=== PATIENT | female | born 1980 | race Caucasian/White ===

== ENCOUNTER 2018-04-29 12:56 | Emergency (ER) | payer MEDICAID ==
--- NOTE | 2018-04-29 16:32 | RADIOLOGY REPORT (SQ) ---
EXAM DESCRIPTION: U/S BREAST UNILATERAL LIMITED COMPLETED DATE/TIME: 04/29/2018 2:54 pm REASON FOR STUDY: red swollen painful left breast r/o abscess COMPARISON: None TECHNIQUE: Static and Realtime grayscale interrogation of focal area(s) of concern in the left breas t(s) acquired. Selected color doppler/spectral images saved to PACS. LIMITATIONS: None. FINDINGS: Masses:No cystic or solid masses identified Architecture:No alteration of normal morphology. No skin thickening. No edema. Other: No fluid collection identified. IMPRESSION: No ultrasound evidence of abscess at the patient identified site of pain and tenderness in the left breast. BIRAD: 1 Negative. RECOMMENDATION: RECOMMENDED FOLLOW-UP: Follow-up as clinically indicated. COMMENT: The [employer] ([employer]) has developed recommendations for screening MRI of the breasts in certain patient populations, to be used in conjunction with mammography. Breast MRI s urveillance may be appropriate for women with more than 20% lifetime risk of developing breast cancer as determined by genetic testing, significant family history of the disease, or history of mantle r adiation for Hodgkins Disease. [employer] Practice Guidelines 2008. TECHNICAL DOCUMENTATION: FINDING NUMBER: (1) ASSESSMENT: (1) JOB ID: [id number] [employer]- All Rights Reserved Reading location - IP/workstation name: [email or web address]
--- NOTE | 2018-04-29 17:36 | ER Document Report ---
ED Breast Problem - General Chief Complaint: Breast Problem Stated Complaint: SWOLLEN BREAST Time Seen by Provider: 04/29/18 13:45 Mode of Arrival: Ambulatory Information source: Patient Notes: 37-year-old female presented to ED for complaint of red swelling left breast times 4 days. She denies any fevers chills or any other symptoms except for the painful red swollen breast. She denies any feeling sick any nausea or any other complaints. Patient is alert and oriented respirations regular and unlabored speaking in full sentences. TRAVEL OUTSIDE OF THE [place] IN LAST 30 DAYS: No - HPI Patient complains to provider of: Redness, Swelling, Tenderness - Left breast Onset: Other - 4 days Onset/Duration: Gradual, Worse Quality of pain: Burning, Sharp, Throbbing Severity: Moderate Pain Level: 4 Discharge description: None Associated Symptoms: None Similar symptoms previously: No Recently seen / treated by doctor: No - Related Data Allergies/Adverse Reactions: No Known Allergies Allergy (Verified 04/29/18 13:01) Past Medical History - General Information source: Patient - Social History Smoking Status: Former Smoker Cigarette use (# per day): No Chew tobacco use (# tins/day): No Smoking Education Provided: No Frequency of alcohol use: None Drug Abuse: None Lives with: Family Family History: Reviewed & Not Pertinent Patient has suicidal ideation: No Patient has homicidal ideation: No - Past Medical History Cardiac Medical History: Reports: None Pulmonary Medical History: Reports: None EENT Medical History: Reports: None Neurological Medical History: Reports: None Endocrine Medical History: Reports: None Renal/ Medical History: Reports: None Malignancy Medical History: Reports: None GI Medical History: Reports: Hx Gastroesophageal Reflux Disease Musculoskeletal Medical History: Reports None Skin Medical History: Reports None Psychiatric Medical History: Reports: None Traumatic Medical History: Reports: None Infectious Medical History: Reports: None Past Surgical History: Reports: Hx Cholecystectomy, Hx Hysterectomy, Hx Oral Surgery - wisdom teeth removed - Immunizations Immunizations up to date: Yes Hx Diphtheria, Pertussis, Tetanus Vaccination: Yes Review of Systems - Review of Systems Constitutional: No symptoms reported EENT: No symptoms reported Cardiovascular: No symptoms reported Respiratory: No symptoms reported Gastrointestinal: No symptoms reported Genitourinary: No symptoms reported Female Genitourinary: No symptoms reported Musculoskeletal: No symptoms reported Skin: See HPI, Change in color - Red swollen tender left breast Hematologic/Lymphatic: No symptoms reported Neurological/Psychological: No symptoms reported Physical Exam - Vital signs Vitals: Temp Pulse Resp BP Pulse Ox 98.8 F 97 16 143/90 H 99 04/29/18 13:04/29/18 13:04/29/18 13:04/29/18 13:04/29/18 13:31 - Skin Skin Temperature: Warm Skin Moisture: Dry Skin Color: Normal Location of irregularity: Chest - Red swollen tender left breast surrounding the nipple 3 cm out circumferential to the breast nipple firm area about 4 cm across. Character of irregularity: Erythematous Irregularity with: Swelling, Tenderness, Warmth. negative: Weeping Course - Re-evaluation Re-evalutation: 04/29/18 21:[address] Jenkins concerning the red swollen tender left breast. I showed him the ultrasound that I had received report for. He stated that this looked like a cellulitis to the left breast and she should be treated with Septra and Keflex by mouth and she should return to the emergency room in 2 days as he would be here in 2 days and he would reexamined this breast. Patient was discharged home with prescriptions for Keflex and Bactrim DS and instructed to return to the emergency room in 2 days to be reexamined by Dr. Jenkins. The area of redness was marked with a skin marker before discharge. Patient verbalized understanding and agreement with treatment plan. - Vital Signs Vital signs: Temp Pulse Resp BP Pulse Ox 98.8 F 97 16 143/90 H 99 04/29/18 13:04/29/18 13:04/29/18 13:04/29/18 13:04/29/18 13:31 - Diagnostic Test Radiology reviewed: Image reviewed, Reports reviewed Discharge - Discharge Clinical Impression: Cellulitis of left breast Condition: Stable Disposition: HOME, SELF-CARE Additional Instructions: CELLULITIS of your left breast: You have an infection of your skin and underlying soft tissues called cellulitis. This is due to bacteria, which can enter through any break in the skin, or even through an irritated hair follicle. Untreated, cellulitis will usually worsen. Antibiotics are required. Usually, warm packs or warm soaks, and elevation of the infected area are recommended. You should start getting better within 24 to 36 hours. Most infections respond quickly to the right medication. Follow-up care is important, however, to check for abscess (boil) formation, unsuspected foreign body, or resistant infection. If you develop fever, chills, or if the area of infection is becoming rapidly more swollen or painful, call the doctor at once. TRIMETHOPRIM-SULFA: You have been given a prescription for trimethoprim-sulfa (TMS, Septra, Bactrim). This is a combination antibiotic of the sulfa class, often used for urinary tract infections, middle ear infections, bronchitis, shigella intestinal infection, and Pneumocystis pneumonia. TMS is usually well-tolerated. Occasional side effects include nausea and decreased appetite. Septra is not recommended for infants less than two months of age. Do not take this medication if you have experienced severe side effects or allergy to sulfa medicine. You should stop this medicine at once and contact your physician if you develop any rash, joint pain, shortness of breath, bruising, or jaundice (yellow color in the skin), or if you develop any other new or unusual symptoms. Cephalexin The antibiotic you've been prescribed is a member of the cephalosporin class. This type of antibiotic covers a wide variety of infections, including those of the skin, lungs, and urinary tract. It's useful for staph infections. This antibiotic is slightly similar to the penicillin family. In rare cases, a person who is allergic to penicillin will also be allergic to this medication. If you have had a severe allergic reaction to penicillin, and have not taken this antibiotic since that time, notify your doctor. Antibiotics which cover many germs ("broad spectrum" antibiotics) are more likely to cause diarrhea or "yeast" infections. Women prone to vaginal yeast problems may suffer an attack after taking this antibiotic. In infants, oral thrush (white spots "stuck" on the cheek) or yeast diaper rash may result. See your doctor if these problems occur. Call at once if you develop itching, hives, shortness of breath, or lightheadedness. Return to the emergency room in 2 days for follow-up exam. Return to the emergency room sooner if you develop fevers feeling sick increased redness increased pain or any other concerns. Please be sure to fill the prescription and take it as is ordered. FOLLOW-UP CARE: If you have been referred to a physician for follow-up care, call the physic ians office for an appointment as you were instructed or within the next two days. If you experience worsening or a significant change in your symptoms, notify the physician immediately or return to the Emergency Department at any time for re-evaluation. Prescriptions: Cephalexin Monohydrate [Keflex 500 mg Capsule] 500 mg PO Q6H 10 Days capsule Sulfamethoxazole/Trimethoprim [Bactrim Ds Tablet] 1 each PO BID #20 tablet Forms: Elevated Blood Pressure, Return to Work
[2018-04-29 17:40] VITALS: BP 138/78
== END 2018-04-29 17:40 | disposition home or self-care (01) ==
LOC: ER 12:56
DX: N61.0 Mastitis without abscess (principal); Z87.891 Personal history of nicotine dependence
CPT/HCPCS: 76642; 99284

== ENCOUNTER 2018-05-02 17:02 | Emergency (ER) | payer MEDICAID ==
[2018-05-02] MEDS ORDERED: NORMAL SALINE 1000 ML 1,000 ML IV ONE (18:09)
--- NOTE | 2018-05-02 18:10 | ER Document Report ---
ED Medical Screen (RME) - General Chief Complaint: Breast Problem Stated Complaint: BREAST PAIN Time Seen by Provider: 05/02/18 18:07 Notes: 37 years old female who was seen 3 days ago for the breast cellulitis presents today with persistent fever chills and expansion of the redness in the nipple and breast region. Giving rise to pain TRAVEL OUTSIDE OF THE [place] IN LAST 30 DAYS: No - Related Data Allergies/Adverse Reactions: No Known Allergies Allergy (Verified 05/02/18 17:07) Past Medical History - Social History Chew tobacco use (# tins/day): No Frequency of alcohol use: None Drug Abuse: None Renal/ Medical History: Denies: Hx Peritoneal Dialysis GI Medical History: Reports: Hx Gastroesophageal Reflux Disease Past Surgical History: Reports: Hx Cholecystectomy, Hx Hysterectomy, Hx Oral Surgery - wisdom teeth removed - Immunizations Immunizations up to date: Yes Hx Diphtheria, Pertussis, Tetanus Vaccination: Yes Physical Exam - Vital signs Vitals: Temp Pulse Resp BP Pulse Ox 98.2 F 86 16 147/87 H 98 05/02/18 17:44 05/02/18 17:44 05/02/18 17:44 05/02/18 17:44 05/02/18 17:44 Course - Vital Signs Vital signs: Temp Pulse Resp BP Pulse Ox 98.2 F 86 16 147/87 H 98 05/02/18 17:44 05/02/18 17:44 05/02/18 17:44 05/02/18 17:44 05/02/18 17:44
[2018-05-02 18:52] LABS: ABSOLUTE BASOPHILS # (AUTO) 0.1 10^3/uL (0.0-0.2); ABSOLUTE EOSINOPHILS # (AUTO) 0.1 10^3/uL (0.0-0.6); ABSOLUTE LYMPHOCYTES (AUTO) 2.2 10^3/uL (0.5-4.7); ABSOLUTE NEUT (AUTO) 8.3 10^3/uL (1.7-8.2); BASOPHILS % (AUTO) 0.6 % (0-2); EOSINOPHILS % (AUTO) 1.1 % (0-6); HEMATOCRIT 37.6 % (36.0-47.0); HEMOGLOBIN 12.4 g/dL (12.0-15.5); LYMPHOCYTES % (AUTO) 18.9 % (13-45); MEAN CORPUSCULAR HEMOGLOBIN 27.2 pg (27.0-33.4); MEAN CORPUSCULAR HGB CONC 33.1 g/dL (32.0-36.0); MEAN CORPUSCULAR VOLUME 82 fl (80-97); MONOCYTES % (AUTO) 8.6 % (3-13); PLATELET COUNT 312 10^3/uL (150-450); RED BLOOD COUNT 4.57 10^6/uL (3.72-5.28); RED CELL DISTRIBUTION WIDTH 13.5 % (11.5-14.0); SEGMENTED NEUTROPHILS % (AUTO) 70.8 % (42-78); TOTAL CELLS COUNTED % (AUTO) 100 %; WHITE BLOOD COUNT 11.7 10^3/uL (4.0-10.5)
[2018-05-02 20:03] LABS: ALANINE AMINOTRANSFERASE 34 U/L (9-52); ALKALINE PHOSPHATASE 83 U/L (38-126); ANION GAP 12 (5-19); ASPARTATE AMINO TRANSFERASE 22 U/L (14-36); BILIRUBIN,DIRECT 0.1 mg/dL (0.0-0.4); BILIRUBIN,TOTAL 0.3 mg/dL (0.2-1.3); BLOOD UREA NITROGEN 13 mg/dL (7-20); CALCIUM 10.1 mg/dL (8.4-10.2); CARBON DIOXIDE 23 mmol/L (22-30); CHLORIDE 101 mmol/L (98-107); GLUCOSE 98 mg/dL (75-110); POTASSIUM 3.6 mmol/L (3.6-5.0); SODIUM 136.3 mmol/L (137-145); TOTAL PROTEIN 6.9 g/dL (6.3-8.2)
--- NOTE | 2018-05-02 20:39 | ER Document Report ---
ED General - General Chief Complaint: Breast Problem Stated Complaint: BREAST PAIN Time Seen by Provider: 05/02/18 18:07 Mode of Arrival: Ambulatory Information source: Patient, Relative, [facility] Records Notes: 37-year-old female with no reported past medical history presents with complaint of left breast pain, worsening redness. Patient states that she noticed pain and redness approximately 1 week prior to arrival. She states that 3 days ago she was seen in the emergency department and ultrasound was performed which did not show a definitive abscess. At that time the erythema of the left breast was outlined and patient was placed on Bactrim and Keflex. Patient states that the pain and redness is worsened. She has had associated nausea and vomiting since starting the antibiotics. She denies any fever, chills, history of MRSA. TRAVEL OUTSIDE OF THE [place] IN LAST 30 DAYS: No - HPI Onset: Last week Onset/Duration: Gradual, Persistent, Worse Quality of pain: Throbbing Severity: Moderate Associated symptoms: Nausea, Vomiting. denies: Fever Exacerbated by: Denies Relieved by: Denies Similar symptoms previously: Yes Recently seen / treated by doctor: Yes - 04/29/18 - Related Data Allergies/Adverse Reactions: No Known Allergies Allergy (Verified 05/02/18 17:07) Past Medical History - General Information source: Patient - Social History Smoking Status: Never Smoker Chew tobacco use (# tins/day): No Frequency of alcohol use: None Drug Abuse: None Lives with: Family Family History: Reviewed & Not Pertinent Patient has suicidal ideation: No Patient has homicidal ideation: No - Medical History Medical History: Negative Renal/ Medical History: Denies: Hx Peritoneal Dialysis GI Medical History: Reports: Hx Gastroesophageal Reflux Disease Past Surgical History: Reports: Hx Cholecystectomy, Hx Hysterectomy, Hx Oral Surgery - wisdom teeth removed - Immunizations Immunizations up to date: Yes Hx Diphtheria, Pertussis, Tetanus Vaccination: Yes Review of Systems - Review of Systems Notes: REVIEW OF SYSTEMS: CONSTITUTIONAL : Denies fever, chills, or sweats. Denies recent illness. Denies weight loss, recent hospitalizations. EENT: Denies visual changes, eye pain. Denies sore throat, oral lesions, difficulty swallowing. CARDIOVASCULAR: Denies chest pain. Denies palpitations. Denies lower extremity edema. RESPIRATORY: Denies cough. Denies shortness of breath, wheezing. GASTROINTESTINAL: Denies abdominal pain or distention. Denies diarrhea. Denies blood in vomitus, stools, or per rectum. Denies black, tarry stools. Denies constipation. GENITOURINARY: Denies difficulty urinating, painful urination, frequency, blood in urine, or vaginal discharge. MUSCULOSKELETAL: Denies back or neck pain or stiffness. Denies joint pain or swelling. SKIN: + Left breast erythema, pain, induration HEMATOLOGIC : Denies easy bruising or bleeding. LYMPHATIC: Denies swollen glands. NEUROLOGICAL: Denies confusion or altered mental status. Denies loss of consciousness. Denies dizziness or lightheadedness. Denies headache. Denies weakness or paralysis. Denies problems difficulty with ambulation, slurred speech. Denies sensory loss, numbness, or tingling. Denies seizures. PSYCHIATRIC: Denies anxiety or stress. Denies depression, suicidal ideation, or homicidal ideation. Denies visual or auditory hallucinations. Physical Exam - Vital signs Vitals: Temp Pulse Resp BP Pulse Ox 98.2 F 86 16 147/87 H 98 05/02/18 17:44 05/02/18 17:44 05/02/18 17:44 05/02/18 17:44 05/02/18 17:44 Interpretation: Hypertensive - Notes Notes: PHYSICAL EXAMINATION: GENERAL: Well-appearing, well-nourished and in no acute distress. HEAD: Atraumatic, normocephalic. EYES: Pupils equal round and reactive to light, extraocular movements intact, conjunctiva are normal. ENT: Nares patent, oropharynx clear without exudates. Moist mucous membranes. NECK: Normal range of motion, supple without lymphadenopathy LUNGS: Breath sounds clear to auscultation bilaterally and equal. No wheezes rales or rhonchi. Left breast erythematous, with associated induration, no fluctuance, irregularly-shaped nipple when compared to the right breast. HEART: Regular rate and rhythm without murmurs ABDOMEN: Soft, nontender, nondistended abdomen. No guarding, no rebound. No masses appreciated. Female : deferred Musculoskeletal: Normal range of motion, no pitting or edema. No cyanosis. NEUROLOGICAL: Cranial nerves grossly intact. Normal speech, normal gait. Normal sensory, motor exams PSYCH: Normal mood, normal affect. SKIN: Warm, Dry, normal turgor, no rashes or lesions noted. Course - Re-evaluation Re-evalutation: Laboratory 05/02/18 05/02/18 05/02/18 18:33 18:33 18:33 WBC 11.7 H RBC 4.57 Hgb 12.4 Hct 37.6 MCV 82 MCH 27.2 MCHC 33.1 RDW 13.5 Plt Count 312 Seg Neutrophils % 70.8 Lymphocytes % 18.9 Monocytes % 8.6 Eosinophils % 1.1 Basophils % 0.6 Absolute Neutrophils 8.3 H Absolute Lymphocytes 2.2 Absolute Monocytes 1.0 Absolute Eosinophils 0.1 Absolute Basophils 0.1 Sodium 136.3 L Potassium 3.6 Chloride 101 Carbon Dioxide 23 Anion Gap 12 BUN 13 Creatinine 0.85 Est GFR ( Amer) > 60 Est GFR (Non-Af Amer) > 60 Glucose 98 Lactic Acid 1.6 Calcium 10.1 Total Bilirubin 0.3 Direct Bilirubin 0.1 Neonat Total Bilirubin Not Reportable Neonat Direct Bilirubin Not Reportable Neonat Indirect Bili Not Reportable AST 22 ALT 34 Alkaline Phosphatase 83 Total Protein 6.9 Albumin 4.0 Temp Pulse Resp BP Pulse Ox 98.3 F 86 20 142/96 H 98 05/02/18 22:04 05/02/18 22:04 05/02/18 22:04 05/02/18 22:04 05/02/18 22:04 05/03/18 02:52 37-year-old female presents with erythema, tenderness of the left breast. Patient will be placed on Bactrim, Keflex after ultrasound showed no definitive abscess. Returns today with reports of worsening pain, swelling. Erythema is far extended at the previously marked area. Bedside ultrasound was performed but I did not appreciate a definitive fluid pocket. CBC, CMP, lactate are unremarkable. Surgery consult was obtained at an I&D was performed by them and reported to have resulted in a large amount of purulent discharge expressed from the area. Surgery recommends continuation of already established antibiotic of Bactrim and Keflex and follow-up with him in his office on May 07, 2018. Dr. Andrade has provided the patient a prescription for pain medications. Patient was evaluated and treated as appropriate for the patient's presenting symptoms and complaint, with consideration of any critical or life threatening conditions that may be associated with their obtained history and exam as noted above. All results were discussed with patient. Patient provided the opportunity to ask questions, and express concerns. Patient was educated on treatments based on their presumed diagnosis as noted above. At this time we will discharge the patient with return precautions and follow-up recommendations. Verbal discharge instructions given a the bedside. Medication warnings reviewed. Patient is in agreement with this plan and has verbalized understanding of return precautions. After careful consideration I feel that that patient can be safely discharged from the emergency department, they were advised to followup with a primary care physician in 2-3 days. Dictation on this chart was performed using voice recognition software and may result in unintended grammatical, spelling, syntax or errors. - Vital Signs Vital signs: Temp Pulse Resp BP Pulse Ox 98.3 F 86 20 142/96 H 98 05/02/18 22:04 05/02/18 22:04 05/02/18 22:04 05/02/18 22:04 05/02/18 22:04 - Laboratory Result Diagrams: 05/02/18 18:33 05/02/18 18:33 Laboratory results interpreted by me: 05/02/18 05/02/18 18:33 18:33 WBC 11.7 H Absolute Neutrophils 8.3 H Sodium 136.3 L Discharge - Discharge Clinical Impression: Breast abscess Condition: Good Disposition: HOME, SELF-CARE Instructions: Abscess ([facility]), Post Incision and Drainage Additional Instructions: Continue the antibiotics you are already taking. Forms: Return to Work Referrals: BASSAM ANDRADE MD [ACTIVE STAFF] - 05/07/18
[2018-05-02] MEDS ORDERED: LIDOCAINE 1% INJ-PF (10 MG/ML) 30 ML SDV INJ ONE (21:04)
[2018-05-02] MEDS ORDERED: MORPHINE SULFATE 10 MG/ML INJ IV ONE (21:34)
--- NOTE | 2018-05-02 22:02 | Operative Report ---
Nonrecallable Operative Report DATE OF SURGERY: 05/02/18 PREOPERATIVE DIAGNOSIS: Left breast abscess POSTOPERATIVE DIAGNOSIS: Left breast abscess OPERATION: Incision and drainage of a left breast abscess SURGEON: BASSAM JAMESON ANESTHESIA: Local TISSUE REMOVED OR ALTERED: Wound culture COMPLICATIONS: None apparent ESTIMATED BLOOD LOSS: Minimal PROCEDURE: Drains/implants: 4 x 4 packing. Procedure in detail: After informed consent was obtained, the patient was laid in the supine position in the emergency department. The area of the left breast was prepped and draped in a normal sterile fashion. 1% lidocaine was used to infiltrate the skin of the left breast. A curvilinear incision was created at the superior aspect of the areola. The abscess cavity was entered, and a large amount of purulent material was expressed. The wound was irrigated and then packed with a 4 x 4 gauze. A dressing was placed, and the procedure was concluded. All sponge, instrument, and needle counts were correct x2. Condition: Stable.
--- NOTE | 2018-05-02 22:09 | PDOC CONSULTATION ---
Consultation Consult Date: 05/02/18 Consult reason:: Left breast abscess History of Present Illness History of Present Illness: VARINDER SANDOVAL is a 37 year old female seen in consultation at the request of the emergency room physician. The patient has a one-week history of left breast erythema, tenderness, and swelling. The patient does have a history of nipple piercings, but has not worn them in 1 year. No recent or . The patient denies any purulent drainage, but she does report malaise, nausea, fevers, chills, and pain. Her pain is sharp and stabbing. It worse it is 8 out of 10. The patient reports difficulty sleeping. Her pain does not radiate. Warm compresses make it feel better, palpation makes it worse. The patient denies chest pain, shortness of breath, melena, hematochezia, abdominal pain, orthostasis, headache, blurry vision, sore throat. Past Medical History GI Medical History: Reports: Gastroesophageal Reflux Disease Past Surgical History Past Surgical History: Reports: Cholecystectomy, Hysterectomy Social History Lives with: Family Smoking Status: Former Smoker Frequency of Alcohol Use: Occasional Family History Family History: Reviewed & Not Pertinent Parental Family History Reviewed: Yes Children Family History Reviewed: Yes Sibling(s) Family History Reviewed.: Yes Medication/Allergy Home Medications: Amoxicillin/Potassium Clav [Augmentin 875-125 Tablet] 1 each PO BID #20 tablet 05/20/12 No Home 05/20/12 Oxycodone HCl/Acetaminophen [Percocet 5-325 mg Tablet] 1 - 2 tab PO ASDIR PRN #25 tablet 05/20/12 Cephalexin Monohydrate [Keflex 500 mg Capsule] 500 mg PO Q6H 10 Days capsule 04/29/18 Sulfamethoxazole/Trimethoprim [Bactrim Ds Tablet] 1 each PO BID #20 tablet 04/29/18 Allergies/Adverse Reactions: No Known Allergies Allergy (Verified 05/02/18 17:07) Review of Systems Constitutional: PRESENT: chills, fever(s), other - Malaise. ABSENT: anorexia, fatigue Eyes: ABSENT: visual disturbances Ears: ABSENT: hearing changes Nose, Mouth, and Throat: ABSENT: sore throat Cardiovascular: ABSENT: chest pain, palpitations Respiratory: ABSENT: cough, dyspnea Gastrointestinal: PRESENT: nausea. ABSENT: abdominal pain, constipation, heartburn, vomiting Genitourinary: ABSENT: dysuria Musculoskeletal: ABSENT: back pain Integumentary: PRESENT: erythema, rash, other - Fluctuant breast mass at the nipple Neurological: ABSENT: abnormal speech, confusion, convulsions, dizziness Psychiatric: ABSENT: anxiety, depression Endocrine: PRESENT: cold intolerance Hematologic/Lymphatic: ABSENT: easy bleeding, easy bruising Physical Exam Vital Signs: Temp Pulse Resp BP Pulse Ox 98.2 F 86 16 147/87 H 98 05/02/18 17:44 05/02/18 17:44 05/02/18 17:44 05/02/18 17:44 05/02/18 17:44 Intake & Output 05/01/18 05/02/18 05/03/18 06:59 06:59 06:59 Weight 113.1 kg General appearance: PRESENT: cooperative Head exam: PRESENT: atraumatic, normocephalic Eye exam: PRESENT: EOMI, PERRLA. ABSENT: scleral icterus Mouth exam: PRESENT: moist, neck supple Teeth exam: ABSENT: poor dentation Neck exam: ABSENT: meningismus, tenderness, thyromegaly, tracheal deviation Respiratory exam: PRESENT: clear to auscultation cori, unlabored. ABSENT: chest wall tenderness, tachypnea, wheezes Cardiovascular exam: PRESENT: RRR Vascular exam: PRESENT: normal capillary refill. ABSENT: pallor GI/Abdominal exam: PRESENT: soft. ABSENT: distended, guarding Rectal exam: PRESENT: deferred Extremities exam: ABSENT: clubbing Musculoskeletal exam: ABSENT: deformity Neurological exam: PRESENT: alert, awake, oriented to person, oriented to place, oriented to time, oriented to situation, CN II-XII grossly intact. ABSENT: motor sensory deficit Psychiatric exam: ABSENT: agitated, anxious, depressed Focused psych exam: ABSENT: delusional Skin exam: PRESENT: erythema, other - Fluctuant left breast abscess beneath the nipple areolar complex. Large amount of erythema on the left breast.. ABSENT: cyanosis, jaundice Results Laboratory Results: 05/02/18 18:33 05/02/18 18:33 05/02/18 05/02/18 05/02/18 18:33 18:33 18:33 WBC 11.7 H RBC 4.57 Hgb 12.4 Hct 37.6 MCV 82 MCH 27.2 MCHC 33.1 RDW 13.5 Plt Count 312 Seg Neutrophils % 70.8 Lymphocytes % 18.9 Monocytes % 8.6 Eosinophils % 1.1 Basophils % 0.6 Absolute Neutrophils 8.3 H Absolute Lymphocytes 2.2 Absolute Monocytes 1.0 Absolute Eosinophils 0.1 Absolute Basophils 0.1 Sodium 136.3 L Potassium 3.6 Chloride 101 Carbon Dioxide 23 Anion Gap 12 BUN 13 Creatinine 0.85 Est GFR ( Amer) > 60 Est GFR (Non-Af Amer) > 60 Glucose 98 Lactic Acid 1.6 Calcium 10.1 Total Bilirubin 0.3 AST 22 ALT 34 Alkaline Phosphatase 83 Total Protein 6.9 Albumin 4.0 Assessment & Plan - Diagnosis (1) Breast abscess Is this a current diagnosis for this admission?: Yes - Plan Summary Plan Summary: This is a 37-year-old female with a left breast abscess. I have recommended incision and drainage at the bedside. She has agreed to this. Risks/benefits discussed, informed consent obtained, and all questions answered. Patient is to continue her antibiotics after the incision and drainage is performed. I will see her my office on Monday.
[2018-05-02 22:13] VITALS: BP 142/96
== END 2018-05-02 22:04 | disposition home or self-care (01) ==
LOC: ER 17:02
DX: N61.1 Abscess of the breast and nipple (principal); N64.4 Mastodynia; R11.2 Nausea with vomiting, unspecified
CPT/HCPCS: 99284; 96361; 96374; 36415; 87040; 87070; 87205; 85025; 87075; 87077; 80053; 83605; 10060; J3490; J2270; J7030

== ENCOUNTER 2018-09-11 07:50 | Observation (INO) | payer MEDICAID ==
--- NOTE | 2018-09-11 09:39 | ER Document Report ---
ED Breast Problem - General Chief Complaint: Breast Problem Stated Complaint: LEFT BREAST PAIN Time Seen by Provider: 09/11/18 09:14 Primary Care Provider: JUSTEN RUVALCABA FNP-C [COMMUNITY BASED STAFF] - Follow up as needed Notes: 37-year-old female that presents today with the onset 5 days ago of some left breast redness and swelling. No fevers. Patient this past April had an abscess to this region with an incision and drainage performed. Patient states for the last 2 days she has been taking Keflex and Bactrim that she had "leftover" from the previous abscess. She denies any swelling to any other anuj on. No other skin lesions that she noted. No discharge from the nipple. TRAVEL OUTSIDE OF THE [place] IN LAST 30 DAYS: No - Related Data Allergies/Adverse Reactions: No Known Allergies Allergy (Verified 09/11/18 07:57) Past Medical History - Social History Smoking Status: Unknown if Ever Smoked Family History: Reviewed & Not Pertinent Renal/ Medical History: Denies: Hx Peritoneal Dialysis GI Medical History: Reports: Hx Gastroesophageal Reflux Disease Past Surgical History: Reports: Hx Cholecystectomy, Hx Hysterectomy, Hx Oral Surgery - wisdom teeth removed - Immunizations Immunizations up to date: Yes Hx Diphtheria, Pertussis, Tetanus Vaccination: Yes Review of Systems - Review of Systems Constitutional: denies: Fever Cardiovascular: denies: Chest pain, Palpitations Respiratory: denies: Short of breath Gastrointestinal: Vomiting Genitourinary: denies: Dysuria Musculoskeletal: denies: Leg swelling Neurological/Psychological: Other - no slurred speech -: Yes All other systems reviewed and negative Physical Exam - Vital signs Vitals: Temp Pulse Resp BP Pulse Ox 98 F 103 H 18 150/83 H 99 09/11/18 08:02 09/11/18 08:02 09/11/18 08:02 09/11/18 08:02 09/11/18 08:02 Notes: Reviewed vital signs and nursing note as charted by RN. CONSTITUTIONAL: Alert and oriented and responds appropriately to questions. Well-appearing; well-nourished HEAD: Normocephalic; atraumatic CARD: Regular rate and rhythm; no murmurs; symmetric distal pulses RESP: Left breast region shows some blanching erythema in a circular orientation around the area [place]. No inversion of the skin or nipple. No nipple discharge. No discrete palpable abscess. Area is tender to palpation. No palpable axillary or supraclavicular lymphadenopathy. Normal chest excursion without splinting or tachypnea; breath sounds clear and equal bilaterally; no wheezes, no rhonchi, no rales ABD/GI: Normal bowel sounds; non-distended; soft, non-tender; no palpable organomegaly or masses BACK: The back appears normal and is non-tender to palpation EXT: Normal ROM in all joints; non-tender to palpation; no edema SKIN: No acute lesions noted NEURO: CN 2-12 intact; 5/5 bilateral upper and lower extremity strength with sensation intact to light touch PSYCH: The patient's mood and manner are appropriate. Grooming and personal hygiene are appropriate. Course - Re-evaluation Re-evalutation: 09/11/18 09:39 Given the history and physical examination we will order a CBC, chemistry, and ultrasound of the left breast. I would like to evaluate for deep skin abscess. 09/11/18 11:08 White blood cell count as recorded. Awaiting ultrasound results. 09/11/18 12:50 Ultrasound does show fluid collection. I have consulted general surgery who states that she will to the surgical service. He would like me to provide a dose of vancomycin and Rocephin. - Vital Signs Vital signs: Temp Pulse Resp BP Pulse Ox 98 F 103 H 18 150/83 H 99 09/11/18 08:02 09/11/18 08:02 09/11/18 08:02 09/11/18 08:02 09/11/18 08:02 - Laboratory Result Diagrams: 09/11/18 09:45 09/11/18 09:45 Discharge - Discharge Clinical Impression: Left breast abscess Condition: Fair Disposition: ADMITTED OBSERVATION Admitting Provider: Surgicalist Unit Admitted: Surgical Floor Referrals: JUSTEN RUVALCABA, DANIELC [COMMUNITY BASED STAFF] - Follow up as needed
[2018-09-11 10:03] LABS: ABSOLUTE EOSINOPHILS # (AUTO) 0.1 10^3/uL (0.0-0.6); ABSOLUTE LYMPHOCYTES (AUTO) 1.6 10^3/uL (0.5-4.7); ABSOLUTE MONOCYTES (AUTO) 0.9 10^3/uL (0.1-1.4); BASOPHILS % (AUTO) 0.1 % (0-2); EOSINOPHILS % (AUTO) 0.5 % (0-6); HEMATOCRIT 41.2 % (36.0-47.0); HEMOGLOBIN 13.5 g/dL (12.0-15.5); MEAN CORPUSCULAR HEMOGLOBIN 26.6 pg (27.0-33.4); MEAN CORPUSCULAR HGB CONC 32.7 g/dL (32.0-36.0); MEAN CORPUSCULAR VOLUME 82 fl (80-97); MONOCYTES % (AUTO) 7.4 % (3-13); PLATELET COUNT 235 10^3/uL (150-450); RED BLOOD COUNT 5.06 10^6/uL (3.72-5.28); RED CELL DISTRIBUTION WIDTH 14.4 % (11.5-14.0); TOTAL CELLS COUNTED % (AUTO) 100 %; WHITE BLOOD COUNT 11.6 10^3/uL (4.0-10.5)
[2018-09-11 10:23] LABS: ANION GAP 8 (5-19); BLOOD UREA NITROGEN 14 mg/dL (7-20); CALCIUM 9.3 mg/dL (8.4-10.2); CARBON DIOXIDE 26 mmol/L (22-30); CHLORIDE 106 mmol/L (98-107); GLUCOSE 97 mg/dL (75-110); POTASSIUM 4.4 mmol/L (3.6-5.0); SODIUM 140.2 mmol/L (137-145)
[2018-09-11] MEDS ORDERED: VANCOMYCIN HCL INJ 1000 MG VIAL IV ONE (12:51)
[2018-09-11] MEDS ORDERED: CEFTRIAXONE 1 GM/D5W RTU 1 GM/50 ML RTUPB IV ONE (12:51)
[2018-09-11] MEDS ORDERED: MORPHINE SULFATE 10 MG/ML INJ IV PRN (13:20)
--- NOTE | 2018-09-11 13:20 | PDOC H&P ---
History of Present Illness Patient complains of: left breast swelling redness History of Present Illness: VARINDER SANDOVAL is a 37 year old female with a hx of left breast piercing until 2 years ago, recent left breast abscess I&D in April 2018 in the ED and dischargd to home on Keflex and Bactrim. Patient returns to the ED with a 5 day hx of left breast swelling, redness, and fullness. A left breast US has been done and it is significant for abscess collection in the left retroareoal area. Past Medical History GI Medical History: Reports: Gastroesophageal Reflux Disease Past Surgical History Past Surgical History: Reports: Cholecystectomy, Hysterectomy Social History Smoking Status: Unknown if Ever Smoked Frequency of Alcohol Use: Occasional Family History Family History: Reviewed & Not Pertinent Parental Family History Reviewed: No Children Family History Reviewed: No Sibling(s) Family History Reviewed.: No Medication/Allergy Home Medications: Amoxicillin/Potassium Clav [Augmentin 875-125 Tablet] 1 each PO BID #20 tablet 05/20/12 No Home 05/20/12 Oxycodone HCl/Acetaminophen [Percocet 5-325 mg Tablet] 1 - 2 tab PO ASDIR PRN #25 tablet 05/20/12 Cephalexin Monohydrate [Keflex 500 mg Capsule] 500 mg PO Q6H 10 Days capsule 04/29/18 Sulfamethoxazole/Trimethoprim [Bactrim Ds Tablet] 1 each PO BID #20 tablet 04/29/18 Allergies/Adverse Reactions: No Known Allergies Allergy (Verified 09/11/18 07:57) Physical Exam Vital Signs: Temp Pulse Resp BP Pulse Ox 98 F 103 H 18 150/83 H 99 09/11/18 08:02 09/11/18 08:02 09/11/18 08:02 09/11/18 08:02 09/11/18 08:02 Intake & Output 09/10/18 09/11/18 09/12/18 06:59 06:59 06:59 Weight 113.9 kg General appearance: PRESENT: no acute distress, morbidly obese Head exam: PRESENT: atraumatic Eye exam: PRESENT: EOMI Mouth exam: PRESENT: moist, neck supple Respiratory exam: PRESENT: clear to auscultation cori Cardiovascular exam: PRESENT: RRR GI/Abdominal exam: PRESENT: soft Torso Front/Back Image: 1 - Left breast erythema and induration Rectal exam: PRESENT: deferred Extremities exam: PRESENT: full ROM Musculoskeletal exam: PRESENT: full ROM Neurological exam: PRESENT: alert, altered, awake, oriented to situation Skin exam: PRESENT: other - left breast= large area of erythema extending over the upper and lower periareolar area with large subcutaneous induration as per abscess Results Laboratory Results: 09/11/18 09:45 09/11/18 09:45 09/11/18 09/11/18 09:45 09:45 WBC 11.6 H RBC 5.06 Hgb 13.5 Hct 41.2 MCV 82 MCH 26.6 L MCHC 32.7 RDW 14.4 H Plt Count 235 Seg Neutrophils % 78.0 Lymphocytes % 14.0 Monocytes % 7.4 Eosinophils % 0.5 Basophils % 0.1 Absolute Neutrophils 9.0 H Absolute Lymphocytes 1.6 Absolute Monocytes 0.9 Absolute Eosinophils 0.1 Absolute Basophils 0.0 Sodium 140.2 Potassium 4.4 Chloride 106 Carbon Dioxide 26 Anion Gap 8 BUN 14 Creatinine 0.87 Est GFR ( Amer) > 60 Est GFR (Non-Af Amer) > 60 Glucose 97 Calcium 9.3 Assessment & Plan - Diagnosis (1) left breastr abscess recurrent Is this a current diagnosis for this admission?: Yes - Plan Summary Plan Summary: A/ erythema, pain of upper and lower periareolar area area of induration located in the upper periareoal region as per left breast abscess US confirms physical findings of Left breast abscess Mild leukocytosis (11K) hx of breast piercing until 2 years ago Recent left breast abscess drained in the ED (April 2018) p/ I&D left breast abscess Inpatient antibiotic treatment Admit NPO IVF IV Abx Procedure, risks, benefits, complications explained to the patient, her questions were answered and she decided to proceed.
--- NOTE | 2018-09-11 13:56 | RADIOLOGY REPORT (SQ) ---
EXAM DESCRIPTION: U/S BREAST UNILATERAL COMPLETE COMPLETED DATE/TIME: 09/11/2018 12:53 pm REASON FOR STUDY: 37; redness and swelling around the areola. Abscess COMPARISON: None. TECHNIQUE: Real-time and static grayscale imaging performed of the retroareolar left breast targeted to the area of clinical concern. Selected color Doppler images recorded. LIMITATIONS: None. FINDINGS: MASS: Complex fluid collection in the retroareolar breast measuring approximately 1 cm in thickness and 3 cm in width. OTHER: No other significant finding. IMPRESSION: Complex fluid collection in the retroareolar breast consistent with a developing abscess . BIRAD: 2 Benign findings. RECOMMENDATION: RECOMMENDED FOLLOW-UP: Follow-up as clinically indicated. COMMENT: The [employer] ([employer]) has developed recommendations for screening MRI of the breasts in certain patient populations, to be used in conjunction with mammography. Breast MRI s urveillance may be appropriate for women with more than 20% lifetime risk of developing breast cancer as determined by genetic testing, significant family history of the disease, or history of mantle r adiation for Hodgkins Disease. ACR Practice Guidelines 2008. TECHNICAL DOCUMENTATION: JOB ID: [id number] [employer]- All Rights Reserved Reading location - IP/workstation name: [email or web address]
[2018-09-11] MEDS: NORMAL SALINE 1000 ML 1,000 ML IV PRN (14:11)
[2018-09-11] MEDS ORDERED: NORMAL SALINE 1000 ML 2,000 ML IV ONE (14:18)
[2018-09-11] MEDS: FAMOTIDINE INJ/PF 20 MG/2 ML SDV IV SCH (15:35)
[2018-09-11] MEDS ORDERED: ONDANSETRON HCL INJ/PF 4 MG/2 ML SDV ONE (21:57)
[2018-09-11] MEDS ORDERED: LIDOCAINE 2% INJ-PF (100 MG/5 ML) SYRINGE ONE (21:57)
[2018-09-11] MEDS ORDERED: KETAMINE HCL INJ 500 MG/10 ML VIAL ONE (21:57)
[2018-09-11] MEDS ORDERED: DEXAMETHASONE SOD PHOSPHATE INJ 4 MG/1 ML VIAL ONE (21:57)
[2018-09-11] MEDS ORDERED: MIDAZOLAM 2 MG/2 ML INJ ONE (21:57)
[2018-09-11] MEDS ORDERED: FENTANYL CITRATE INJ/PF 100 MCG/2 ML AMPUL ONE ×2 (21:57→23:08)
[2018-09-11] MEDS ORDERED: PROPOFOL INJ 200 MG/20 ML VIAL IV ONE (21:58)
[2018-09-11] MEDS ORDERED: ACETAMINOPHEN 1,000 MG/100 ML RTUPB IV ONE (21:58)
[2018-09-11] MEDS ORDERED: FENTANYL CITRATE INJ/PF 100 MCG/2 ML AMPUL IV PRN ×2 (22:51)
[2018-09-11] MEDS ORDERED: DIPHENHYDRAMINE HCL 50 MG/ML VIAL IV PRN (22:51)
[2018-09-11] MEDS ORDERED: MEPERIDINE HCL/PF INJ 25 MG/1 ML DISP.SYRIN IV PRN (22:51)
[2018-09-11] MEDS ORDERED: PROMETHAZINE HCL INJ 25 MG/1 ML VIAL IV PRN (22:51)
--- NOTE | 2018-09-11 22:54 | Operative Report ---
Nonrecallable Operative Report DATE OF SURGERY: 09/11/18 PREOPERATIVE DIAGNOSIS: recurrent right breast abscess POSTOPERATIVE DIAGNOSIS: same OPERATION: incision and drainage of recurren left breast abscess SURGEON: ZAID ELLIS ANESTHESIA: LMAC - plus 20 mL 1% lido w/ epi TISSUE REMOVED OR ALTERED: n/a COMPLICATIONS: n/a ESTIMATED BLOOD LOSS: none INTRAOPERATIVE FINDINGS: retroareoal cavity filled with pus PROCEDURE: see procedure
[2018-09-11] MEDS ORDERED: LIDOCAINE 1%/EPINEPHRINE INJ 20 ML VIAL ONE (23:00)
[2018-09-11] MEDS ORDERED: KETOROLAC TROMETHAMINE INJ/PF 30 MG/1 ML SDV ONE (23:09)
[2018-09-11] MEDS ORDERED: KETOROLAC TROMETHAMINE INJ/PF 30 MG/1 ML SDV IV PRN (23:47)
[2018-09-12] MEDS: FAMOTIDINE INJ/PF 20 MG/2 ML SDV IV SCH ×3 (00:17→21:16)
[2018-09-12] MEDS: NORMAL SALINE 1000 ML 1,000 ML IV PRN (00:19)
[2018-09-12] MEDS: ACETAMINOPHEN 1,000 MG/100 ML RTUPB IV SCH ×4 (03:27→21:15)
[2018-09-12] MEDS: ENOXAPARIN SODIUM INJ 40 MG/0.4 ML DISP.SYRIN SUBCUT SCH (05:19)
[2018-09-12] MEDS: VANCOMYCIN HCL 1,500 MG in DEXTROSE 5%-WATER 250 ML IV SCH ×2 (05:20→17:33)
[2018-09-12 06:31] LABS: HEMATOCRIT 37.4 % (36.0-47.0); HEMOGLOBIN 12.2 g/dL (12.0-15.5); MEAN CORPUSCULAR HEMOGLOBIN 26.7 pg (27.0-33.4); MEAN CORPUSCULAR HGB CONC 32.7 g/dL (32.0-36.0); MEAN CORPUSCULAR VOLUME 82 fl (80-97); PLATELET COUNT 214 10^3/uL (150-450); RED BLOOD COUNT 4.58 10^6/uL (3.72-5.28); RED CELL DISTRIBUTION WIDTH 14.3 % (11.5-14.0); WHITE BLOOD COUNT 12.4 10^3/uL (4.0-10.5)
[2018-09-12 07:01] LABS: ANION GAP 10 (5-19); BLOOD UREA NITROGEN 9 mg/dL (7-20); CALCIUM 8.6 mg/dL (8.4-10.2); CARBON DIOXIDE 21 mmol/L (22-30); CHLORIDE 108 mmol/L (98-107); GLUCOSE 143 mg/dL (75-110); POTASSIUM 4.4 mmol/L (3.6-5.0); SODIUM 139.1 mmol/L (137-145)
[2018-09-12 07:20] LABS: ABSOLUTE LYMPHOCYTES# (MANUAL) 0.5 10^3/uL (0.5-4.7); ABSOLUTE NEUTROPHILS# (MANUAL) 11.9 10^3/uL (1.7-8.2); BASOPHILS % (MANUAL) 0 % (0-2); EOSINOPHILS % (MANUAL) 0 % (0-6); LYMPHOCYTES % (MANUAL) 4 % (13-45); MONOCYTES % (MANUAL) 0 % (3-13); SEGMENTED NEUTROPHILS % (MAN) 96 % (42-78); TOTAL CELLS COUNTED 100
[2018-09-12 07:21] LABS: ANISOCYTOSIS SLIGHT; OVALOCYTES SLIGHT; PLATELET COMMENT ADEQUATE; POIKILOCYTOSIS SLIGHT
[2018-09-12] MEDS ORDERED: CEFTRIAXONE SODIUM 1,500 MG in DEXTROSE 5%-WATER 100 ML IV SCH (10:00)
--- NOTE | 2018-09-12 10:09 | PDOC PROGRESS REPORT ---
Subjective Progress Note for:: 09/12/18 Reason For Visit: LEFT BREAST ABSCESS,RECURRENT Physical Exam Vital Signs: Temp Pulse Resp BP Pulse Ox 97.9 F 72 18 112/64 97 09/12/18 08:00 09/12/18 08:00 09/12/18 08:00 09/12/18 08:00 09/12/18 08:00 Intake & Output 09/11/18 09/12/18 09/13/18 06:59 06:59 06:59 Intake Total 3790 Output Total 5 Balance 3785 Weight 114.3 kg Exam: Dressing and packing removed. Wound appears dry and rlatively clean. Results Laboratory Results: 09/12/18 05:26 09/12/18 05:26 09/11/18 09/11/18 09/11/18 09:45 09:45 09:45 WBC 11.6 H RBC 5.06 Hgb 13.5 Hct 41.2 MCV 82 MCH 26.6 L MCHC 32.7 RDW 14.4 H Plt Count 235 Seg Neutrophils % 78.0 Lymphocytes % 14.0 Monocytes % 7.4 Eosinophils % 0.5 Basophils % 0.1 Absolute Neutrophils 9.0 H Absolute Lymphocytes 1.6 Absolute Monocytes 0.9 Absolute Eosinophils 0.1 Absolute Basophils 0.0 Sodium 140.2 Potassium 4.4 Chloride 106 Carbon Dioxide 26 Anion Gap 8 BUN 14 Creatinine 0.87 Est GFR ( Amer) > 60 Est GFR (Non-Af Amer) > 60 Glucose 97 Calcium 9.3 Serum HCG, Qual NEGATIVE 09/12/18 09/12/18 05:26 05:26 WBC 12.4 H RBC 4.58 Hgb 12.2 Hct 37.4 MCV 82 MCH 26.7 L MCHC 32.7 RDW 14.3 H Plt Count 214 Seg Neutrophils % Not Reportable Lymphocytes % Not Reportable Monocytes % Not Reportable Eosinophils % Not Reportable Basophils % Not Reportable Absolute Neutrophils Not Reportable Absolute Lymphocytes Not Reportable Absolute Monocytes Not Reportable Absolute Eosinophils Not Reportable Absolute Basophils Not Reportable Sodium 139.1 Potassium 4.4 Chloride 108 H Carbon Dioxide 21 L Anion Gap 10 BUN 9 Creatinine 0.66 Est GFR ( Amer) > 60 Est GFR (Non-Af Amer) > 60 Glucose 143 H Calcium 8.6 Serum HCG, Qual Impressions: Breast Ultrasound 09/11/18 09:36 IMPRESSION: Complex fluid collection in the retroareolar breast consistent with a developing abscess. Assessment & Plan - Time Time Spent with patient: 15-24 minutes - Plan Summary Plan Summary: Plan: 1) Continue IV antibiotics 2) Continue with wet to dry dressins q 12 hs. 3) Recheck WBC in am 4) Possible discharge tomorrow on po antibiotics 5) Await C&S results
[2018-09-12] MEDS ORDERED: VANCOMYCIN HCL INJ 1000 MG VIAL IV SCH (13:30)
[2018-09-13] MEDS: ACETAMINOPHEN 1,000 MG/100 ML RTUPB IV SCH ×2 (03:14→09:10)
[2018-09-13] MEDS: VANCOMYCIN HCL 1,500 MG in DEXTROSE 5%-WATER 250 ML IV SCH (05:52)
[2018-09-13] MEDS: ENOXAPARIN SODIUM INJ 40 MG/0.4 ML DISP.SYRIN SUBCUT SCH (05:54)
--- NOTE | 2018-09-13 07:30 | OPERATIVE REPORT E ---
Operative Report NAME: VARINDER SANDOVAL : 1980 AGE: 37Y DATE OF SURGERY: 09/11/2018 ROOM: 210 PREOPERATIVE DIAGNOSIS: LEFT BREAST RECURRENT ABSCESS. POSTOPERATIVE DIAGNOSIS: LEFT BREAST RECURRENT ABSCESS. OPERATION: Incision and drainage of left breast recurrent abscess. SURGEON: ZAID ELLIS M.D. CORPORATE STRATEGY ANALYST: None. BLEEDING: None. COMPLICATIONS: None. ANESTHESIA: MAC provide by anesthesiologist plus 20 mL of 1% lidocaine with epinephrine. INDICATION AND FINDINGS: This is a 37-year-old obese female with a history of left breast abscess back in April 2018, which was incised and drained in the emergency room, where the patient presented to the emergency room complaining of redness, swelling and pain of the left breast. An ultrasound was done a fluid collection in the left areolar area. The decision was made to take the patient to surgery to undergo debridement of the abscess. DESCRIPTION OF PROCEDURE: Procedure was done in the operating room. The patient placed in the supine position on the stretcher. Anesthesia was provided by the Anesthesiologist. The left breast was prepped and draped in the usual fashion. The area of the left areola was then infiltrated with lidocaine and a curvilinear incision was made and the top half of the areola at the transition point between areola and skin. The subcutaneous tissue was then divided with Bovie and an abscess cavity was entered. Cultures were obtained for aerobic, anaerobic, and Gram-stain. The area was then fully opened with Bovie, finger was inserted in the cavity, and the cavity was then completely opened with blunt division of *------*. After this was accomplished the area was irrigated with normal saline until clear. The wound bed was then smeared with Bacitracin antibiotic ointment, packed with a single 4 x 4, sterile dressings were applied on top of it, and taped. The patient tolerated the procedure well and transferred to the PACU in satisfactory condition. DICTATING PHYSICIAN: ZAID ELLIS M.D. [id number] PHY#: [id number] ID: [id number] JOB#: [id number] ACCT: [id number] cc:ZAID ELLIS M.D. >
[2018-09-13 09:15] VITALS: BP 132/74
== END 2018-09-13 10:00 | disposition home or self-care (01) ==
LOC: ER 07:50 → EH 13:26 → 2N 15:14
PROVIDERS: ADMIT Surgery; ATTEND Surgery
PROC: 0J960ZZ Drainage of Chest Subcutaneous Tissue and Fascia, Open Approach (ICD-10-PCS; principal; 2018-09-11 18:30)
DX: N61.1 Abscess of the breast and nipple (principal); E66.01 Morbid (severe) obesity due to excess calories; Z98.890 Other specified postprocedural states
CPT/HCPCS: 99285; 96365; 96367; 36415 ×2; 87070; 87205; 84703; 85025 ×2; 87075; 87077; 80048 ×2; 87186; 76641; 10060; J2250; J1100; J3010; J3490; J2001; J1885; J2270; J1650 ×2; J0696 ×2; J2405; J7060 ×3; J7030 ×2; J2704; J3370 ×3; S0028; J0131 ×3; 400; G0378

== ENCOUNTER 2019-03-31 03:53 | Emergency (ER) | payer MEDICAID ==
[2019-03-31] MEDS ORDERED: KETOROLAC TROMETHAMINE INJ/PF 30 MG/1 ML SDV IV ONE (05:20)
[2019-03-31] MEDS ORDERED: ONDANSETRON HCL INJ/PF 4 MG/2 ML SDV IV ONE ×2 (05:20→12:01)
[2019-03-31 05:56] LABS: ABSOLUTE BASOPHILS # (AUTO) 0.1 10^3/uL (0.0-0.2); ABSOLUTE MONOCYTES (AUTO) 0.6 10^3/uL (0.1-1.4); ABSOLUTE NEUT (AUTO) 12.4 10^3/uL (1.7-8.2); BASOPHILS % (AUTO) 0.5 % (0-2); EOSINOPHILS % (AUTO) 0.2 % (0-6); HEMATOCRIT 44.8 % (36.0-47.0); HEMOGLOBIN 14.8 g/dL (12.0-15.5); LYMPHOCYTES % (AUTO) 7.1 % (13-45); MEAN CORPUSCULAR HEMOGLOBIN 27.6 pg (27.0-33.4); MEAN CORPUSCULAR VOLUME 84 fl (80-97); MONOCYTES % (AUTO) 4.5 % (3-13); PLATELET COUNT 222 10^3/uL (150-450); RED BLOOD COUNT 5.36 10^6/uL (3.72-5.28); RED CELL DISTRIBUTION WIDTH 14.9 % (11.5-14.0); SEGMENTED NEUTROPHILS % (AUTO) 87.7 % (42-78); TOTAL CELLS COUNTED % (AUTO) 100 %; WHITE BLOOD COUNT 14.2 10^3/uL (4.0-10.5)
[2019-03-31] MEDS ORDERED: MORPHINE SULFATE 10 MG/ML INJ IV ONE (05:56)
[2019-03-31] MEDS ORDERED: NORMAL SALINE 1000 ML 1,000 ML IV ONE (05:57)
--- NOTE | 2019-03-31 05:58 | ER Document Report ---
ED Medical Screen (RME) - General Chief Complaint: Flank Pain Stated Complaint: LOWER BACK PAIN Time Seen by Provider: 03/31/19 05:55 Notes: 38-year-old female with sudden onset sharp right flank pain with sharp lower abdominal pain that started last night, patient states that she vomited over 20 times. She denies fever, she denies history of the same. She has had a partial hysterectomy and cholecystectomy, she denies medical history otherwise. Denies history of kidney stones. TRAVEL OUTSIDE OF THE [place] IN LAST 30 DAYS: No - Related Data Allergies/Adverse Reactions: No Known Allergies Allergy (Verified 09/11/18 07:57) Past Medical History Renal/ Medical History: Denies: Hx Peritoneal Dialysis GI Medical History: Reports: Hx Gastroesophageal Reflux Disease Psychiatric Medical History: Denies: Hx Depression Past Surgical History: Reports: Hx Cholecystectomy, Hx Hysterectomy, Hx Oral Surgery - wisdom teeth removed - Immunizations Immunizations up to date: Yes Hx Diphtheria, Pertussis, Tetanus Vaccination: Yes Physical Exam - Vital signs Vitals: Temp Pulse Resp BP Pulse Ox 97.5 F 85 18 140/98 H 98 03/31/19 04:08 03/31/19 04:08 03/31/19 04:08 03/31/19 04:08 03/31/19 04:08 - Abdominal Tenderness: Tender - Tender in the general lower abdomen, no guarding Course - Re-evaluation Re-evalutation: I have greeted and performed a rapid initial assessment of this patient. A com prehensive ED assessment and evaluation of the patient, analysis of test results and completion of the medical decision making process will be conducted by additional ED providers. - Vital Signs Vital signs: Temp Pulse Resp BP Pulse Ox 97.5 F 85 18 140/98 H 98 03/31/19 04:14 03/31/19 04:08 03/31/19 04:14 03/31/19 04:08 03/31/19 04:14 - Laboratory Result Diagrams: 03/31/19 05:45 03/31/19 05:45
[2019-03-31 06:04] LABS: APPEARANCE,URINE SLIGHTLY-CLOUDY; BILIRUBIN,URINE NEGATIVE (NEGATIVE); COLOR,URINE YELLOW; GLUCOSE, URINE NEGATIVE (NEGATIVE); KETONES,URINE 20 mg/dL (NEGATIVE); LEUKOCYTE ESTERASE,URINE NEGATIVE (NEGATIVE); NITRITE,URINE NEGATIVE (NEGATIVE); PROTEIN,URINE 30 mg/dL (NEGATIVE); URINE SPECIFIC GRAVITY 1.033
[2019-03-31 06:12] LABS: ALBUMIN 4.1 g/dL (3.5-5.0); ALKALINE PHOSPHATASE 66 U/L (38-126); ANION GAP 10 (5-19); ASPARTATE AMINO TRANSFERASE 19 U/L (14-36); BILIRUBIN,DIRECT 0.1 mg/dL (0.0-0.4); BILIRUBIN,TOTAL 0.4 mg/dL (0.2-1.3); BLOOD UREA NITROGEN 21 mg/dL (7-20); CALCIUM 9.6 mg/dL (8.4-10.2); CARBON DIOXIDE 25 mmol/L (22-30); CHLORIDE 104 mmol/L (98-107); GLUCOSE 157 mg/dL (75-110); POTASSIUM 3.5 mmol/L (3.6-5.0); TOTAL PROTEIN 7.7 g/dL (6.3-8.2)
--- NOTE | 2019-03-31 07:15 | ER Document Report ---
ED General - General Chief Complaint: Flank Pain Stated Complaint: LOWER BACK PAIN Time Seen by Provider: 03/31/19 05:55 TRAVEL OUTSIDE OF THE [place] IN LAST 30 DAYS: No - HPI Notes: History of recurrent breast abscess status post drainage most recently August 2018, presents though today with vomiting right flank pain and she says she has not really peed since 9 PM. Prior to my seeing patient she received 15 Toradol for morphine for Zofran. And was started on IV normal saline. - Related Data Allergies/Adverse Reactions: No Known Allergies Allergy (Verified 09/11/18 07:57) Past Medical History - Social History Smoking Status: Current Every Day Smoker Family History: Reviewed & Not Pertinent Patient has suicidal ideation: No Patient has homicidal ideation: No Renal/ Medical History: Denies: Hx Peritoneal Dialysis GI Medical History: Reports: Hx Gastroesophageal Reflux Disease Psychiatric Medical History: Denies: Hx Depression Past Surgical History: Reports: Hx Cholecystectomy, Hx Hysterectomy, Hx Oral S urgery - wisdom teeth removed - Immunizations Immunizations up to date: Yes Hx Diphtheria, Pertussis, Tetanus Vaccination: Yes Physical Exam - Vital signs Vitals: Temp Pulse Resp BP Pulse Ox 97.5 F 85 18 140/98 H 98 03/31/19 04:08 03/31/19 04:08 03/31/19 04:08 03/31/19 04:08 03/31/19 04:08 Course - Re-evaluation Re-evalutation: 03/31/19 07:17 Labs reviewed potassium borderline low at 3.4, urine shows trace ketones and blood. Pelvic exam very benign though did show evidence of 4+ bacteria and 4+ epithelial cells. I think this could explain some of her symptomatology. Prescribed Flagyl 7 days. Also think she has some musculoskeletal mid thoracic right greater than left muscle spasm suggested Tylenol since she has history of ulcer can do anti-inflammatories. Discussed warning signs for return with patient directly that include fever chills sweats severe persistent abdominal pain inability to hold any p.o. intake down. 03/31/19 11:41 - Vital Signs Vital signs: Temp Pulse Resp BP Pulse Ox 98 F 66 14 123/91 H 98 03/31/19 12:48 03/31/19 07:06 03/31/19 12:48 03/31/19 12:41 03/31/19 12:40 - Laboratory Result Diagrams: 03/31/19 05:45 03/31/19 05:45 Laboratory results interpreted by me: 03/31/19 03/31/19 03/31/19 05:30 05:45 05:45 WBC 14.2 H RBC 5.36 H RDW 14.9 H Lymph % (Auto) 7.1 L Absolute Neuts (auto) 12.4 H Seg Neutrophils % 87.7 H Potassium 3.5 L BUN 21 H Est GFR (MDRD) Non-Af 54 L Glucose 157 H Urine Protein 30 H Urine Ketones 20 H Urine Blood MODERATE H Urine Urobilinogen 2.0 H 03/31/19 14:23 Wet mount did show some evidence of bacterial vaginosis consistent with speculum exam of some discharge but no peritoneal signs no lateralizing findings or CMT. Do not suspect any evidence or positive STD screen. Patient was given initially prior to me seeing Toradol and morphine and Zofran IV. She had return of her renal colic and CT showed right renal stone she ultimately received 2 L of IV fluids. She did not have any signs of infection in her urine. She is not . Is her first kidney stone. We are ensuring she can pass p.o. challenge and that her pain is well controlled and then will discharge with urology f/u and urine strainer. - Diagnostic Test Radiology reviewed: Image reviewed, Reports reviewed Radiology results interpreted by me: 03/31/19 14:22 Abdomen/Pelvis CT 03/31/19 05:56 IMPRESSION: 1. Mild to moderate right hydronephrosis and hydroureter to the level of a 2-3 mm right distal ureteral stone just above the right UVJ. 2. No other acute abnormality. Mild to moderate right hydronephrosis and hydroureter to the level of a 2-3 mm right distal ureteral stone just above the right UVJ Discharge - Discharge Clinical Impression: Thoracic back pain, Paraspinal muscle spasm, Bacterial vaginitis, Kidney stone on left side, Calculus of ureterovesical junction (UVJ) Disposition: HOME, SELF-CARE Additional Instructions: The sample from your pelvic exam did show some evidence of bacterial vaginitis which again can cause a lot of on and off crampy lower abdominal pain. For this we prescribe an antibiotic for 7 days 2 times a day. I would recommend trying to treat your bacterial vaginitis and see if that starts to improve some of your belly pain. Your abdomen exams otherwise remain very soft nontender your other labs look great and your urine showed no evidence of infection. I do also think you have some paraspinal muscle spasm more on the right in the thoracic part of your spine. Since you have a history of ulcer I would not recommend any NSAID medications but try ice for the next few days as you can tolerate few minutes at a time then you can start to try a heating pad heat heating pad, massage can help. Otherwise please follow-up with your doctor for your regular maintenance exams and your [facility] for your regular appointments. I can prescribe you a short course of the omeprazole but this is something your primary care doctor has to manage and follow-up, because symptoms you had described to me initially were not consistent with reflux rather or lower abdominal pain and flank pain which I think are related to the above. Prescriptions: Oxycodone HCl [Oxy-Ir 5 mg Tablet] 5 mg PO Q4HP PRN 3 Days #18 tab PRN Reason: Acetaminophen [Mapap] 975 mg PO Q6HP PRN #28 tablet PRN Reason: Metronidazole [Flagyl] 500 mg PO BID 7 Days #14 tablet Polyethylene Glycol 3350 [Miralax Powder 17 gm/Packet] 6 packet PO DAILY 3 Days #1 pkg
--- NOTE | 2019-03-31 07:51 | RADIOLOGY REPORT (SQ) ---
CT abdomen and pelvis without contrast on 03/31/2019 at 6:48 AM CLINICAL INDICATION: Vomiting, right back pain TECHNIQUE: Multiple axial images are obtained throughout the abdomen and pelvis without the administration of contrast. This exam was performed according to our departmental dose-optimization program, which includes automated exposure control, adjustment of the mA and/or kV according to patient size and/or use of iterative reconstruction technique. Total DLP is 997 mGy*cm. COMPARISON: None FINDINGS: Abdomen: The lung bases are clear. The patient is status post cholecystectomy. There is mild to moderate right hydronephrosis and hydroureter to the level of a 2-3 mm right distal ureteral stone just above the right UVJ. There are no other renal or ureteral stones. There is mild right perinephric stranding related to the obstruction. The unenhanced solid abdominal organs are otherwise unremarkable. There is no abdominal adenopathy. There is no free fluid or free air within the abdomen. The abdominal portion of the GI tract is unremarkable. Pelvis: There is no free fluid in the pelvis. The patient is status post hysterectomy. There is no pelvic adenopathy. The pelvic portion of the GI tract including the appendix is unremarkable. No bony abnormality is noted. IMPRESSION: 1. Mild to moderate right hydronephrosis and hydroureter to the level of a 2-3 mm right distal ureteral stone just above the right UVJ. 2. No other acute abnormality.
[2019-03-31 10:49] LABS: BACTERIA (WET MOUNT) 4+ BACTERIA SEEN; EPITHELIALS (WET MOUNT) 4+ EPITHELIALS SEEN; RBCS (WET MOUNT) RARE RBCS SEEN; T.VAGINALIS (WET MOUNT) NO TRICHOMONAS SEEN; WBCS (WET MOUNT) 1+ WBCS SEEN; YEAST (WET MOUNT) NO YEAST SEEN
[2019-03-31] MEDS ORDERED: HYDROMORPHONE HCL INJ/PF 2 MG/ML AMPULE IV ONE (12:02)
[2019-03-31] MEDS ORDERED: RINGERS SOLUTION,LACTATED 1,000 ML IV ONE (12:02)
[2019-03-31 12:20] LABS: CHLAM PCR NOT DETECTED (NOT DETECT)
[2019-03-31 15:04] VITALS: BP 119/84
== END 2019-03-31 15:03 | disposition home or self-care (01) ==
LOC: ER 03:53
DX: N20.0 Calculus of kidney (principal); N76.0 Acute vaginitis; B96.89 Other specified bacterial agents as the cause of diseases classified elsewhere; M62.830 Muscle spasm of back; M54.6 Pain in thoracic spine; M54.5 Low back pain; R10.30 Lower abdominal pain, unspecified; R11.10 Vomiting, unspecified; Z90.49 Acquired absence of other specified parts of digestive tract; Z90.710 Acquired absence of both cervix and uterus
CPT/HCPCS: 99284; 96361; 96374; 96375; 36415; 87210; 83690; 84703; 85025; 80053; 81001; 87491; 87591; 74176; J1885; J2270; J1170; J2405; J7030; J7120